=== PATIENT | female | born 1960 | race Caucasian/White ===

== ENCOUNTER → 2016-03-28 | Outpatient (CLI) | payer OTHER | LOC: MAMMO 08:30 | DX: Z12.31 Encounter for screening mammogram for malignant neoplasm of breast (principal) ==

== ENCOUNTER → 2020-12-31 | Outpatient (CLI) | payer BC | END | disposition home or self-care (01) | LOC: MAMMO 13:17 | PROVIDERS: ATTEND Nurse Practitioner Family | DX: Z12.31 Encounter for screening mammogram for malignant neoplasm of breast (principal) ==

== ENCOUNTER → 2021-04-10 | Outpatient (CLI) | payer BC | END | disposition home or self-care (01) | LOC: RAD 09:57 | PROVIDERS: ATTEND Nurse Practitioner Family | DX: R05.9 Cough, unspecified (principal); R06.2 Wheezing; R09.81 Nasal congestion ==

== ENCOUNTER → 2024-05-03 | Outpatient (CLI) | payer BC | END | disposition home or self-care (01) | LOC: MAMMO 14:00 | PROVIDERS: ATTEND Nurse Practitioner Women's Health | DX: N63.10 Unspecified lump in the right breast, unspecified quadrant (principal); N64.89 Other specified disorders of breast; R92.30 Dense breasts, unspecified ==